=== PATIENT | female | born 1985 ===

== ENCOUNTER 2018-09-29 16:30 | Emergency (ER) | payer BC, MEDICAID ==
[2018-09-29 17:01] VITALS: BMI 23.0
[2018-09-29] MEDS ORDERED: Betamethasone Soluspan 30 mg/5mL Inj Susp IM ONE (17:14)
[2018-09-29 23:28] VITALS: BP 105/62; PULSE 82
--- NOTE | 2018-09-30 07:42 | OBHP ---
Datetime: 09/29/2018 18:00 IP Adm Impression: , intrauterine IP Chief Complaint Other: Betamethasone shot IP Admit Plan: Observation/Evaluation; Discharge home Admit Comment, IP Provider: Pt is a 33 y/o at EGA of 35wk based on 12.5 week U/S done 8 LMP of 02/03/18, BINTA 10/31/18 presented to OB ED instructed to come by Dr. Jackman for steroid shot due to being told by U/S that baby was smaller than expected. Denies vaginal bleeding, LOF. Reports good movement. Denies headaches, blurry vision, chest pain, SOB, dizziness, nausea, vomiting, diar alex, constipation or dysuria. Provider: Dr. Jackman [facility] PMHx: Gest DM Meds: Diet control for Gest DM, PNV, Ferrous FMHx: Denies Allergies: NKDA SurgHx: None SOCHx: Former smoker 3-4 cigs per day for 10 years, Denies alcohol or drug use OBGYN: Gest DM with 1NSVD 2014. No hx of STD's, last pap done this reports normal Labs: GC/CHl negative. RPR nonreactive Assessment Pt is a 33 y/o at EGA of 35wk based on 12.5 week U/S done 04/23/18 LMP of 02/03/18, BINTA presented to OB ED instructed to come by Dr. Jackman for steroid shot Plan: Betamethasone shot administered x1 RT ED tomorrow for next shot RTC on 10/[address] Jackman Case reviewed and discussed with attending Rosita Lemus PGY1 OB Hospitalist note. With PGY1 I saw and examined this pt. She had been checked at the office SVE closed acc to pt. She was closed again. She had some CTX but had no complaints. will give Steroid todya and she will follow up with Dr Jackman Extremities - PN: Normal Lungs - PN: Normal Heart - PN: Normal HEENT - PN: Normal General - PN: Normal FHR - Baseline A Provider: 130's Membranes, Provider: Intact Comments, ACOG Physical Exam: GEN: Lying in bed NAD HEENT: NCAT CARD: RRR + S1S2 RESP: CTA, no wheezing, rales or rhonchi GI: Gravid, + BS, no tenderness to palpation EXT: No edema, no calf tenderness Monitor FHR tracing 130's, moderate variability, 15x15 accelerations, no decels Bimanual cervix closed and thick Pool Provider: Negative IP Hx Assessment: The History has been Reviewed and is Current EGA AdmitDate IP: 35.3 Vital Signs Provider: Reviewed; Within Normal Limits IP Chief Complaint: Other NICHD Variability Prov Fetus A: Moderate 6-25bpm NICHD Accel Fetus A IP Provider: [id number] FHR Category Provider Fetus A: Category I NICHD Decel Fetus A IP Provider: None Dilatation, Provider: 0 Effacement, Provider: 0 Station, Provider: -3 Genitourinary Exam: Normal
--- NOTE | 2018-09-30 07:46 | OBDCSUM ---
Datetime: 09/29/2018 17:50 Follow up in weeks, Provider: 2d Discharge Diagnosis Prov Other: thratend PTL; SGA vs IUGR
== END 2018-09-29 17:45 | disposition home or self-care (01) ==
LOC: H.EROB2 16:30
DX: O36.5931 Maternal care for other known or suspected poor fetal growth, third trimester, fetus 1 (principal); Z3A.35 35 weeks gestation of pregnancy; Z23 Encounter for immunization
CPT/HCPCS: 96372; 99281; J0702

== ENCOUNTER 2018-09-30 17:19 | Emergency (ER) | payer BC, MEDICAID ==
[2018-09-29 17:01] VITALS: BMI 23.0
[2018-09-30] MEDS ORDERED: Betamethasone Soluspan 30 mg/5mL Inj Susp IM ONE (17:23)
--- NOTE | 2018-09-30 18:59 | OBHP ---
Datetime: 09/30/2018 18:17 IP Chief Complaint Other: Betamethasone IP Admit Plan: Discharge home Admit Comment, IP Provider: HPI: Vivian is here for her second betamethasone shot. She was sent [facility] yesterday after her gorwt US showed reported growth restriction (that report is not avai lable for review). Dr. Groves reviewed the US and recommended delivery at 36 weeks, so patient was sent for steroids. The patient reports she is uncomfortable with the decision to deliver early and do esn't fully understand the plan. BINTA: 10/31/18 (based on 12.5 week U/S done 04/23/18, LMP of 02/03/18) Provider: Dr. Jackman [facility] PMH Gest DM (diet controlled) Meds PNV, Ferrous FMHx Denies Allergies NKDA PSH None Social Former smoker 3-4 cigs per day for 10 years, Denies alcohol or drug use OBGYN: Gest DM with 1NSVD 2014. No hx of STD's, last pap done this reports normal PHYSICAL EXAM Labs: GC/CHl negative. RPR nonreactive Assessment/Plan: This is 33 y/o , GDMA1 at EGA of 35.4 here for her second betamethasone -- Patient instructed to discuss the plan for delivery with Dr. Groves at her appt tomorrow -- Second beta given -- Reactive NST Chhaya Wasserman MD OB Fellow OB Hospitalist Addendum: Pt seen by me. Agree w/ above. 33 yo at 35+4 wks w/ grow th restriction, here for 2nd dose of betamethasone. NST reactive. Pt received steroid dose and was discharged home. Pt has an appoint w/ Dr. Groves tomorrow. (ES) Abdomen - PN: Normal Lungs - PN: Normal Heart - PN: Normal HEENT - PN: Normal General - PN: Normal IP Fetus A Comments: Reactive NST FHR - Baseline A Provider: 120 Gestation - Est Wks by US: 35.4 Vital Signs Provider: Reviewed; Within Normal Limits NICHD Variability Prov Fetus A: Moderate 6-25bpm NICHD Accel Fetus A IP Provider: [id number]
--- NOTE | 2018-09-30 19:04 | OBDCSUM ---
Datetime: 09/30/2018 17:59 Discharged to, Provider: Home Follow up at, Provider: Dr Rees Disch Instr Activity: Normal activity; May be up to bathroom; May be up for meals; May Shower Disch Instr Diet: Regular Discharge Time: 09/30/2018 18:03 Follow up in weeks, Provider: Bailey tomorrow at 10am Disch Referrals: None Discharge Diagnosis Prov Other: Steroid administration for growth restriction Datetime: 09/29/2018 17:50 Follow up in weeks, Provider: 2d Discharge Diagnosis Prov Other: thratend PTL; SGA vs IUGR
[2018-09-30 22:18] VITALS: BP 106/74; PULSE 93; O2SAT 98
== END 2018-09-30 18:05 | disposition home or self-care (01) ==
LOC: H.EROB2 17:19
DX: O36.5931 Maternal care for other known or suspected poor fetal growth, third trimester, fetus 1 (principal); Z23 Encounter for immunization; Z3A.36 36 weeks gestation of pregnancy
CPT/HCPCS: 96372; 99281; J0702